=== PATIENT | male | born 1965 | race Two or more races ===

== ENCOUNTER 2016-07-27 19:20 | Emergency (ER) | payer MEDICAID, SELFPAY ==
[~2016-07-27] VITALS: Ht 175.3 cm; Wt 76.7 kg
[~2016-07-27 19:20] MED LIST: IBUPROFEN600 MG ORAL; KEFLEX500 MG ORAL; NKM; ROBAXIN-750750 MG PO
[2016-07-27 19:38] VITALS: BP 139/88
[2016-07-27 20:00] LABS: BASOPHILS % (AUTO) 0.9 % (0.0-2.0); EOSINOPHILS % (AUTO) 3.7 % (0.0-3.0); LYMPHOCYTES % (AUTO) 35.1 % (20.0-45.0); MEAN CORPUSCULAR HEMOGLOBIN 32.6 PG (27.0-31.0); MEAN CORPUSCULAR HGB CONC 35.4 G/DL (32.0-36.0); MEAN CORPUSCULAR VOLUME 92 FL (80-99); MEAN PLATELET VOLUME 7.6 FL (6.5-10.1); MONOCYTES % (AUTO) 6.8 % (1.0-10.0); NEUTROPHILS % (AUTO) 53.5 % (45.0-75.0); PLATELET COUNT 227 K/UL (150-450); RED BLOOD COUNT 5.36 M/UL (4.70-6.10); RED CELL DISTRIBUTION WIDTH 11.3 % (11.6-14.8); WHITE BLOOD COUNT 8.6 K/UL (4.8-10.8)
[2016-07-27] MEDS ORDERED: Metoclopramide 10mg/2ml Inj IVP ONE (20:00)
[2016-07-27 20:53] LABS: TROPONIN I < 0.30 ng/mL (<=0.30)
[2016-07-27 20:55] LABS: ALANINE AMINOTRANSFERASE 21 U/L (3-41); ALBUMIN/GLOBULIN RATIO 1.7 (1.0-2.7); ANION GAP 18 (5-15); ASPARTATE AMINO TRANSFERASE 16 U/L (5-40); CALCIUM 9.5 mg/dL (8.6-10.2); CARBON DIOXIDE 25 mEQ/L (20-30); CHLORIDE 97 mEQ/L (98-107); CREATININE 0.8 mg/dL (0.7-1.2); GLOMERULAR FILTRATION RATE > 60 mL/min (>60); HEMOLYSIS 10; SODIUM 140 mEQ/L (135-145); TOTAL PROTEIN 7.1 g/dL (6.6-8.7)
--- NOTE | 2016-07-27 21:01 | Emergency Room Report ---
History of Present Illness General Chief Complaint: Chest Pain Source: Patient Present Illness HPI 50-year-old male presents to ED for evaluation. Patient states the last 3 days he's been feeling palpitations. Notes episodes of his heart beating very fast then resolving. Lasting for several seconds. Denies any chest pain or shortness of breath. No other aggravating or relieving factors. Denies smoking or drug use. Denies history of high blood pressure. Notes history of diabetes. States he is also experiencing dark stools. States that he has episodes of abdominal pain. Denies any abdominal pain at this time. Symptoms have been going on and off from one year now. Denies fevers or chills. Denies nausea or vomiting. Denies any other associated symptoms Allergies: Coded Allergies: No Known Allergies (Unverified , 02/23/14) Patient History Past Medical History: DM Past Surgical History: none Pertinent Family History: none Social History: Denies: alcohol use, drug use, smoking Immunizations: UTD Reviewed Nursing Documentation: PMH: Agreed, PSxH: Agreed Nursing Documentation-PMH Past Medical History: No History, Except For Hx Diabetes: Yes Review of Systems All Other Systems: negative except mentioned in HPI Physical Exam Vital Signs Date Time Temp Pulse Resp B/P Pulse Ox O2 Delivery O2 Flow Rate FiO2 07/27/16 19:29 98.1 83 16 145/87 98 Room Air Sp02 EP Interpretation: reviewed, normal General Appearance: no apparent distress, alert, GCS 15, non-toxic Head: normocephalic Eyes: bilateral eye PERRL, bilateral eye normal inspection ENT: normal ENT inspection Neck: normal inspection Respiratory: chest non-tender, lungs clear, normal breath sounds, speaking full sentences Cardiovascular #1: regular rate, rhythm, no edema Gastrointestinal: normal bowel sounds, non tender, soft, non-distended, no guarding, no rebound Rectal: deferred Genitourinary: no CVA tenderness Musculoskeletal: normal inspection Neurologic: alert, oriented x3, responsive, motor strength/tone normal, sensory intact, speech normal Psychiatric: normal inspection Skin: normal inspection Lymphatic: normal inspection Medical Decision Making Diagnostic Impression: Primary Impression: Palpitations Additional Impressions: Constipation Qualified Codes: K59.00 - Constipation, unspecified Diabetes Qualified Codes: E13.8 - Other specified diabetes mellitus with unspecified complications ER Course Hospital Course 50-year-old M presents ED complaining of palpitations, c/o blood in stool Differential diagnoses include: afib, Vtach, SVT, anxiety, dehydration Clinical course Patient placed on stretcher. After initial history and physical I ordered labs , EKG, chest x-ray, IVFs, KUB. labs reviewed- glucose 245, remainder of electrolytes ok, troponins negative, no leukocytosis, hemoglobin/hematocrit stable Chest x-ray-no cardiomegaly, no rib fracture, no pneumothorax, no acute process KUB - fecal impaction noted EKG - NSR, no ischemic changes noted I. I feel this is a highly complex case requiring extensive working including EKG/Rhythm strip, Xray/CT/US, Blood/urine lab work, repeat exams while in ED, and administration of strong opiates/narcotics for pain control, admission to hospital or close patient follow up. Diagnosis - palpitations, diabetes, constipation Stable and discharged to home with Rx Colace, Metformin. Instructed to followup with PMD. Return to ED if symptoms recur or worsen Labs Test 07/27/16 19:45 White Blood Count 8.6 K/UL (4.8-10.8) Red Blood Count 5.36 M/UL (4.70-6.10) Hemoglobin 17.4 G/DL (14.2-18.0) Hematocrit 49.3 % (42.0-52.0) Mean Corpuscular Volume 92 FL (80-99) Mean Corpuscular Hemoglobin 32.6 PG (27.0-31.0) Mean Corpuscular Hemoglobin Concent 35.4 G/DL (32.0-36.0) Red Cell Distribution Width 11.3 % (11.6-14.8) Platelet Count 227 K/UL (150-450) Mean Platelet Volume 7.6 FL (6.5-10.1) Neutrophils (%) (Auto) 53.5 % (45.0-75.0) Lymphocytes (%) (Auto) 35.1 % (20.0-45.0) Monocytes (%) (Auto) 6.8 % (1.0-10.0) Eosinophils (%) (Auto) 3.7 % (0.0-3.0) Basophils (%) (Auto) 0.9 % (0.0-2.0) Sodium Level 140 mEQ/L (135-145) Potassium Level 4.0 mEQ/L (3.4-4.9) Chloride Level 97 mEQ/L (98-107) Carbon Dioxide Level 25 mEQ/L (20-30) Anion Gap 18 (5-15) Blood Urea Nitrogen 15 mg/dL (7-23) Creatinine 0.8 mg/dL (0.7-1.2) Estimat Glomerular Filtration Rate > 60 mL/min (>60) Glucose Level 245 mg/dL (74-106) Calcium Level 9.5 mg/dL (8.6-10.2) Total Bilirubin 0.2 mg/dL (0.0-1.2) Aspartate Amino Transf (AST/SGOT) 16 U/L (5-40) Alanine Aminotransferase (ALT/SGPT) 21 U/L (3-41) Alkaline Phosphatase 47 U/L (40-129) Total Creatine Kinase 135 U/L (38-174) Creatine Kinase MB < 1.5 ng/mL (< 6.7) Creatine Kinase MB Relative Index 1.1 Troponin I < 0.30 ng/mL (<=0.30) Total Protein 7.1 g/dL (6.6-8.7) Albumin 4.5 g/dL (3.5-5.2) Globulin 2.6 g/dL Albumin/Globulin Ratio 1.7 (1.0-2.7) EKG Diagnostic Results Rate: normal Rhythm: NSR ST Segments: no acute changes ASA given to the pt in ED: No Rhythm Strip Diag. Results EP Interpretation: yes Rhythm: NSR, no PVC's, no ectopy Chest X-Ray Diagnostic Results EP Interpretation: Yes Findings: no consolidation, no effusion, no pneumothorax, no acute cardiopulmonary disease Number of Views: 1 Other X-Ray Diagnostic Results Other X-Ray Diagnostic Results : X-Ray Ordered: KUB EP Interpretation: Yes Findings: no fractures, no dislocation, no soft tissue swelling, other - stool in colon. no dilated loops of bowel Number of Views: 1 Last Vital Signs Date Time Temp Pulse Resp B/P Pulse Ox O2 Delivery O2 Flow Rate FiO2 07/27/16 19:40 83 21 Room Air 07/27/16 19:38 98.1 139/88 98 Status: improved Disposition: HOME, SELF-CARE Condition: Stable Scripts Docusate Sodium* (COLACE*) 100 Mg Capsule 100 MG ORAL THREE TIMES A DAY for 30 Days, CAP Prov: OTTO DOSHI M.D. 07/27/16 Metformin Hcl* (METFORMIN HCL*) 500 Mg Tablet 500 MG ORAL DAILY, #30 TAB Prov: OTTO DOSHI M.D. 07/27/16 Referrals: NOT CHOSEN AVRIL/,REFERRING (PCP) OTTO DOSHI M.D. Jul 27, 2016 21:01
[2016-07-27 21:05] LABS: CKMB < 1.5 ng/mL (< 6.7)
[2016-07-27] MEDS ORDERED: COLACE100 MG ORAL (21:30)
[2016-07-27] MEDS ORDERED: METFORMIN HCL500 M1 ORAL (21:30)
[2016-07-27 21:48] VITALS: BP 134/92
[2016-07-27 21:51] VITALS: BP 139/88
--- NOTE | 2016-07-28 10:44 | Diagnostic Imaging Report ---
Indication: Chest pain Technique: One view of the chest Comparison: none Findings: Lungs and pleural spaces are clear. Heart size is normal. Impression: No acute process This agrees with the preliminary interpretation provided by the emergency room physician
--- NOTE | 2016-07-28 14:47 | Cardiology Report ---
APPROVED REPORT EKG Measurement Heart [id number] Normal sinus rhythm Normal ECG
--- NOTE | 2016-07-31 10:51 | Diagnostic Imaging Report ---
Indication: Abdominal pain Technique: Supine view of the abdomen Comparison: none Findings: Bowel gas pattern is unremarkable. No unusual masses or calcifications. Impression: No acute process This agrees with the preliminary interpretation provided by the emergency room physician
== END 2016-07-27 21:54 | disposition home or self-care (01) ==
LOC: EMR 19:46
DX: R00.2 Palpitations (principal); K59.00 Constipation, unspecified; E11.9 Type 2 diabetes mellitus without complications; R07.9 Chest pain, unspecified
CPT/HCPCS: 36415; 71010; 74000; 80053; 82550; 82553; 84484; 85025; 93005; 96360; 96374; 99284; J2765; J7040

== ENCOUNTER 2017-12-01 10:51 | Emergency (ER) | payer MEDICAID ==
[~2017-12-01] VITALS: Ht 177.8 cm; Wt 79.8 kg
[~2017-12-01 10:51] MED LIST changes: +COLACE100 MG ORAL; +METFORMIN HCL500 M1 ORAL
[2017-12-01 11:21] VITALS: BP 162/99
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
--- NOTE | 2017-12-01 11:49 | Diagnostic Imaging Report ---
EXAM: CT Head Without Intravenous Contrast CLINICAL HISTORY: PAIN TECHNIQUE: Axial computed tomography images of the head/brain without intravenous contrast. CTDI is 70.53 mGy and DLP is 1245 mGy-cm. One or more of the following dose reduction techniques were used: automated exposure control, adjustment of the mA and/or kV according to patient size, use of iterative reconstruction technique. COMPARISON: No relevant prior studies available. FINDINGS: Brain: Unremarkable. No evidence of acute intracranial hemorrhage. No significant white matter disease. No edema. No mass effect or midline shift. Ventricles: Unremarkable. No ventriculomegaly. Bones/joints: Unremarkable. No acute fracture. Soft tissues: Soft tissue swelling in the forehead. Sinuses: Mild ethmoid sinus mucosal thickening. The remaining paranasal sinuses appear clear. No sinus air-fluid levels. Mastoid air cells: Unremarkable as visualized. No mastoid effusion. IMPRESSION: 1. No acute intracranial findings. 2. Soft tissue swelling in the forehead. 3. Mild ethmoid sinus mucosal thickening.
[2017-12-01] MEDS ORDERED: Norco 5mg/325mg tab ORAL ONE (12:00)
[2017-12-01] MEDS ORDERED: IBUPROFEN600 MG ORAL (12:37)
[2017-12-01 12:48] VITALS: BP 132/86
== END 2017-12-01 13:00 | disposition home or self-care (01) ==
LOC: EMR 11:30
DX: S00.93XA Contusion of unspecified part of head, initial encounter (principal); Y04.2XXA Assault by strike against or bumped into by another person, initial encounter; Y92.9 Unspecified place or not applicable; E11.9 Type 2 diabetes mellitus without complications
CPT/HCPCS: 70450; 99284